=== PATIENT | female | born 1955 | race Caucasian/White ===

== ENCOUNTER 2020-07-19 08:55 | Emergency (ER) | payer MEDICAID ==
[~2020-07-19] VITALS: Ht 154.9 cm; Wt 71.7 kg
[~2020-07-19 08:55] MED LIST: ASP325 PO; BROMOCRIPTINE2.5 M1 PO; EC NAPROSYN500 MG PO; LOVASTATIN20 MG PO; METFORMIN ER500 M1 PO; NAPROSYN375 MG PO; PRILOSEC20 MG PO; ZESTRIL20 MG PO
[2020-07-19 09:04] VITALS: BP 171/64; Ht 154.9 cm; Wt 71.7 kg
== END 2020-07-19 09:54 | disposition home or self-care (01) ==
LOC: ED 08:55
DX: N39.0 Urinary tract infection, site not specified (principal); I10 Essential (primary) hypertension; E11.9 Type 2 diabetes mellitus without complications; Z98.890 Other specified postprocedural states